=== PATIENT | female | born 1975 | race Caucasian/White ===

== ENCOUNTER 2023-02-06 18:13 | Emergency (ER) | payer MEDICARE, SELFPAY ==
--- NOTE | 2023-02-06 18:23 | XR_ITS ---
PROCEDURE INFORMATION: Exam: XR Left Humerus Exam date and time: 02/06/2023 7:05 PM Age: 48 years old Clinical indication: Pain; Upper arm; Left; Additional info: Arm injury TECHNIQUE: Imaging protocol: Radiologic exam of the left humerus. Views: 2 or more views. COMPARISON: CR Shoulder L 06/02/2023 19:02 FINDINGS: Bones/joints: No acute fracture or dislocation. Soft tissues: Normal. IMPRESSION: No acute fracture or dislocation.
--- NOTE | 2023-02-06 18:23 | XR_ITS ---
PROCEDURE INFORMATION: Exam: XR Chest Exam date and time: 02/06/2023 7:08 PM Age: 48 years old Clinical indication: Shortness of breath; Additional info: SOA TECHNIQUE: Imaging protocol: Radiologic exam of the chest. Views: 1 view. COMPARISON: CR Humerus L 06/02/2023 19:05 FINDINGS: Lungs: Unremarkable. No consolidation. Pleural spaces: Unremarkable. No pleural effusion. No pneumothorax. Heart/Mediastinum: Unremarkable. No cardiomegaly. Bones/joints: Unremarkable. IMPRESSION: No acute findings.
--- NOTE | 2023-02-06 18:23 | XR_ITS ---
PROCEDURE INFORMATION: Exam: XR Left Shoulder Exam date and time: 02/06/2023 7:02 PM Age: 48 years old Clinical indication: Pain; Shoulder; Left; Additional info: Shoulder injury TECHNIQUE: Imaging protocol: Radiologic exam of the left shoulder. Views: 2 or more views. COMPARISON: No relevant prior studies available. FINDINGS: Bones/joints: There appear to be calcifications in left rotator cuff tendons. No acute fracture or dislocation. Soft tissues: Normal. IMPRESSION: 1. There appear to be calcifications in left rotator cuff tendons. This could correlate with calcific tendinitis. 2. No acute fracture or dislocation.
[2023-02-06 18:25] VITALS: BP 196/128; PULSE 85; PULSE 96; RESP 16; RESP 18; TEMP 36.6; O2SAT 97; BMI 25.8
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
[2023-02-06 18:33] VITALS: BP 203/142; PULSE 66; RESP 18; O2SAT 96
[2023-02-06 18:49] LABS: Chloride 107 mmol/L (98-107); Potassium 4.3 mmoL/L (3.5-5.1); Sodium 138 mmol/L (136-145)
[2023-02-06 18:50] LABS: Basophils # 0.1 K/mm3 (0-0.2); Basophils % 0.6 % (0.1-2.0); Eosinophils # 0.3 K/mm3 (0.0-0.4); Eosinophils % 3.2 % (0.1-12.0); Hematocrit 41.1 % (37.0-47.0); Hemoglobin 12.7 g/dL (12.2-16.2); Lymphocytes # 2.2 K/mm3 (0.7-4.5); Lymphocytes % 25.9 % (10-50); Mean Corpuscular HGB Conc 30.9 g/dL (31.8-35.4); Mean Corpuscular Hemoglobin 27.8 pg (27.0-31.2); Mean Corpuscular Volume 89.9 fl (81-99); Monocytes # 0.5 K/mm3 (0.1-1.0); Monocytes % 5.4 % (1.7-9.3); Neutrophils # 5.4 K/mm3 (1.8-7.8); Neutrophils % 64.9 % (37.0-80.0); Platelet Count 394 K/mm3 (142-424); Red Blood Count 4.57 M/mm3 (4.20-5.40); Red Cell Distribution Width 15.7 % (11.5-17.5); White Blood Count 8.3 K/mm3 (4.8-10.8)
[2023-02-06 18:52] LABS: Alanine Aminotransferase 12 U/L (12-78); Albumin Level 3.8 g/dl (3.5-5.0); Alkaline Phosphatase 92 U/L (38-126); Anion Gap 7.3 mEq/L (5-15); Aspartate Amino Transferase 24 U/L (14-36); Bilirubin,Total 0.4 mg/dl (0.2-1.3); Blood Urea Nitrogen 21 mg/dl (7-17); Carbon Dioxide 28 mmol/L (22.0-30.0); Creatinine Clearance Estimated 42 mL/min (50-200); Estimated Glomerular Filt Rate 28 ml/min (>60); GFR (African American) 34 ML/MIN (>60); Globulin 3.8 g/dL (1.3-3.2); Total Protein,Serum 7.6 g/dl (6.3-8.2)
[2023-02-06 18:53] LABS: Calcium 8.2 mg/dl (8.4-10.2); Glucose 92 mg/dl (74-100)
--- NOTE | 2023-02-06 19:09 | PC.NURSE ---
pt going to scan
--- NOTE | 2023-02-06 19:21 | PC.NURSE ---
pt back in room
[2023-02-06 20:01] VITALS: BP 197/87; PULSE 64; RESP 16; TEMP 36.6; O2SAT 97
== END 2023-02-06 20:02 | disposition home or self-care (01) ==
PROVIDERS: Emergency Provider Emergency Medicine
DX: R53.1 Weakness (principal); R51.9 Headache, unspecified
CPT/HCPCS: 71045; 73030; 73060; 80053; 85025; 96361; 96374; 96375; 99284; 99285; J2405